=== PATIENT | female | born 1970 | race Caucasian/White ===

== ENCOUNTER 2017-11-29 19:41 | Emergency (ER) | payer OTHER ==
[~2017-11-29] VITALS: Ht 177.8 cm; Wt 72.6 kg
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
--- NOTE | 2017-11-29 19:42 | NUR ---
ER MD SOTOMAYOR AT BEDSIDE
[2017-11-29] MEDS ORDERED: ONDANSETRON 4 MG TAB.RAPDIS ONE (22:27)
[2017-11-29] MEDS ORDERED: HYDROCODONE/APAP 10/325MG 1 EA TABLET ONE (22:27)
[2017-11-29] MEDS ORDERED: HYDROCODONE/APAP 10/325MG 1 EA TABLET PO ONE (22:30)
[2017-11-29] MEDS ORDERED: ONDANSETRON 4 MG TAB.RAPDIS SL ONE (22:30)
--- NOTE | 2017-11-29 23:13 | NUR ---
Patient discharged to home in stable condition. Written and verbal after care instructions given. Patient verbalizes understanding of instruction. NO S/S OF DISTRESS NOTED UPON DISCHARGE
[2017-11-29 23:15] VITALS: BP 141/87
== END 2017-11-29 23:15 | disposition home or self-care (01) ==
LOC: ER 19:44
DX: S06.0X0A Concussion without loss of consciousness, initial encounter (principal); S00.11XA Contusion of right eyelid and periocular area, initial encounter; S00.531A Contusion of lip, initial encounter; F32.9 Major depressive disorder, single episode, unspecified; F17.200 Nicotine dependence, unspecified, uncomplicated; Y04.0XXA Assault by unarmed brawl or fight, initial encounter; Y93.89 Activity, other specified; Y92.89 Other specified places as the place of occurrence of the external cause; Y99.8 Other external cause status
CPT/HCPCS: 70450; 84703; 99285; 99406; A4606; Q0162; Z7610